=== PATIENT | female | born 1970 | race Caucasian/White ===

== ENCOUNTER 2017-11-28 12:35 | Emergency (ER) | payer BC ==
[~2017-11-28] VITALS: Ht 162.6 cm; Wt 127.0 kg
[~2017-11-28 12:35] MED LIST: PERC5TAB12 PO; PROC1TAB8 PO; ZOFR4TAB3 SL
[2017-11-28 12:42] VITALS: BP 171/92; PULSE 68; RESP 20; TEMP 98.3; O2SAT 97
[2017-11-28] MEDS ORDERED: SODIUM CHLOR 0.9% 1000 ML INJ 1,000 ML IV SCH (12:56)
[2017-11-28 13:00] VITALS: BP 137/80; PULSE 61; RESP 18; O2SAT 95
[2017-11-28] MEDS ORDERED: PANTOPRAZOLE SODIUM 40 MG VIAL IVP ONE (13:00)
[2017-11-28] MEDS ORDERED: MORPHINE SULFATE 4 MG/ML INJ IV PUSH ONE (13:00)
[2017-11-28] MEDS ORDERED: METOCLOPRAMIDE HCL 10 MG/2 ML VIAL IV PUSH ONE (13:00)
--- NOTE | 2017-11-28 13:26 | PD ---
HPI Chief Complaint: GI Complaint Time Seen by Provider: 12:47 Travel History International Travel<30 days: No Contact w/Intl Traveler<30days: No Traveled to known affect area: No History of Present Illness HPI 47-year-old female that presents to the ED for evaluation lower abdominal pain and bloody stool. Per patient she seems less anxious. The patient is that she has to go but she has not gone a few times. When she actually when she had a hard stool in the second time she had normal stool that she started noticing that she had blood in her stool. No history of this in the past. Was seen in the past and feels similar except she does not feel nauseous and has no diarrhea. No. She does have a history of surgery to her bladder has a history of kidney stones and states that similar but she is never had the diarrhea or blood in stool with it before. Per patient when he comes is 7 out of 10 is more like a cramping. No fevers. Has loss of appetite. PFSH Past Medical History ?: Not : 2 Para: 2 Past Surgical History Section: Yes (X2) Social History Alcohol Use: Yes (SOCIAL) Tobacco Use: No Substance Use: No Allergies-Medications (Allergen,Severity, Reaction): Coded Allergies: No Known Allergies (Verified Adverse Reaction, Unknown, 11/28/17) Reported Meds & Prescriptions Reported Meds & Active Scripts Active Review of Systems Except as stated in HPI: all other systems reviewed are Neg Physical Exam Narrative GENERAL: SKIN: Warm and dry. HEAD: Atraumatic. Normocephalic. EYES: Pupils equal and round. No scleral icterus. No injection or drainage. ENT: No nasal bleeding or discharge. Mucous membranes pink and moist. NECK: Trachea midline. No JVD. CARDIOVASCULAR: Regular rate and rhythm. RESPIRATORY: No accessory muscle use. Clear to auscultation. Breath sounds equal bilaterally. GASTROINTESTINAL: Abdomen soft, non-tender, nondistended. Hepatic and splenic margins not palpable. Rectal exam: done with female nurse present and female Medical student. No hemorrhoid, hemocult positive. MUSCULOSKELETAL: Extremities without clubbing, cyanosis, or edema. No obvious deformities. Full ROM of the upper and lower extremities bilaterally. 2+ pulses. NEUROLOGICAL: Awake and alert. No obvious cranial nerve deficits. Motor grossly within normal limits. Five out of 5 muscle strength in the arms and legs. Normal speech. PSYCHIATRIC: Appropriate mood and affect; insight and judgment normal. Data Data Last Documented VS Vital Signs Date Time Temp Pulse Resp B/P (MAP) Pulse Ox O2 Delivery O2 Flow Rate FiO2 11/28/17 14:20 18 11/28/17 13:00 61 137/80 (99) 95 Room Air 11/28/17 12:42 98.3 Orders Orders Complete Blood Count With Diff (11/28/17 12:56) Comprehensive Metabolic Panel (11/28/17 12:56) Lipase (11/28/17 12:56) Lactic Acid (11/28/17 12:56) Prothrombin Time / Inr (Pt) (11/28/17 12:56) Act Partial Throm Time (Ptt) (11/28/17 12:56) Urinalysis - C+S If Indicated (11/28/17 12:56) Ct Abd/Pel W Iv Contrast(Rout) (11/28/17 12:56) Iv Access Insert/Monitor (11/28/17 12:56) Ecg Monitoring (11/28/17 12:56) Morphine Inj (Morphine Inj) (11/28/17 13:00) Pantoprazole Inj (Protonix Inj) (11/28/17 13:00) Sodium Chlor 0.9% 1000 Ml Inj (Ns 1000 M (11/28/17 12:56) Type And Screen (11/28/17 12:56) Metoclopramide Inj (Reglan Inj) (11/28/17 13:00) Iohexol 350 Inj (Omnipaque 350 Inj) (11/28/17 15:16) Ed Discharge Order (11/28/17 16:07) Labs Laboratory Tests Test 11/28/17 13:20 11/28/17 13:35 Urine Color YELLOW Urine Turbidity HAZY Urine pH 8.0 Urine Specific [place] 1.019 Urine Protein NEG mg/dL Urine Glucose (UA) NEG mg/dL Urine Ketones NEG mg/dL Urine Occult Blood TRACE Urine Nitrite NEG Urine Bilirubin NEG Urine Urobilinogen LESS THAN 2.0 MG/DL Urine Leukocyte Esterase NEG Urine RBC LESS THAN 1 /hpf Urine WBC LESS THAN 1 /hpf Urine Squamous Epithelial Cells 6 /hpf Urine Bacteria FEW /hpf Urine Mucus FEW /lpf Microscopic Urinalysis Comment CULT NOT INDICATED White Blood Count 5.7 TH/MM3 Red Blood Count 4.30 MIL/MM3 Hemoglobin 13.7 GM/DL Hematocrit 38.5 % Mean Corpuscular Volume 89.6 FL Mean Corpuscular Hemoglobin 31.8 PG Mean Corpuscular Hemoglobin Concent 35.5 % Red Cell Distribution Width 13.2 % Platelet Count 192 TH/MM3 Mean Platelet Volume 9.1 FL Neutrophils (%) (Auto) 77.5 % Lymphocytes (%) (Auto) 14.2 % Monocytes (%) (Auto) 6.8 % Eosinophils (%) (Auto) 1.2 % Basophils (%) (Auto) 0.3 % Neutrophils # (Auto) 4.4 TH/MM3 Lymphocytes # (Auto) 0.8 TH/MM3 Monocytes # (Auto) 0.4 TH/MM3 Eosinophils # (Auto) 0.1 TH/MM3 Basophils # (Auto) 0.0 TH/MM3 CBC Comment AUTO DIFF Differential Comment AUTO DIFF CONFIRMED Prothrombin Time 9.9 SEC Prothromb Time International Ratio 1.0 RATIO Activated Partial Thromboplast Time 19.6 SEC Blood Urea Nitrogen 8 MG/DL Creatinine 0.83 MG/DL Random Glucose 107 MG/DL Total Protein 7.4 GM/DL Albumin 3.8 GM/DL Calcium Level 8.8 MG/DL Alkaline Phosphatase 76 U/L Aspartate Amino Transf (AST/SGOT) 54 U/L Alanine Aminotransferase (ALT/SGPT) 52 U/L Total Bilirubin 1.5 MG/DL Sodium Level 139 MEQ/L Potassium Level 4.6 MEQ/L Chloride Level 106 MEQ/L Carbon Dioxide Level 23.0 MEQ/L Anion Gap 10 MEQ/L Estimat Glomerular Filtration Rate 74 ML/MIN Lactic Acid Level 1.0 mmol/L Lipase 66 U/L [facility] Medical Decision Making Medical Screen Exam Complete: Yes Emergency Medical Condition: Yes Medical Record Reviewed: Yes Interpretation(s) CBC & BMP Diagram 11/28/17 13:35 Total Protein 7.4, Albumin 3.8, Calcium Level 8.8, Alkaline Phosphatase 76, Aspartate Amino Transf (AST/SGOT) 54 H, Alanine Aminotransferase (ALT/SGPT) 52, Total Bilirubin 1.5 H UA shows some blood Lipase WNL Last Impressions Abdomen/Pelvis CT 11/28/17 1256 Signed Impressions: CONCLUSION: 1. 2 nonspecific low-attenuation hepatic masses. These could be further evalua davion with outpatient CT and/or MRI. 2. Cholelithiasis 2 cm calcified gallstone and no wall thickening or inflammat ory change. 3. 1 mm nonobstructing right renal calculus. 4. Unremarkable bowel gas pattern. There is a normal appendix. Differential Diagnosis Diverticulitis versus bleeding versus colitis versus acute abdomen versus appendicitis Narrative Course 47-year-old female that presents to the ED for evaluation of lower abdominal pain. Patient was properly examined and was signs and symptoms of GI bleed and possible diverticulitis. Labs and imaging ordered. This showed no sign of acute disease. Case discussed with my attending Dr Moura who agrees with discharge. Patient given prescription for tramadol, zofran, flagyl. Follow up with PCP. See ED if worst. [facility] Point of Care Internal Pos. & Neg. Controls: Passed Fecal Specimen Occult Blood: Positive Diagnosis Primary Impression: Rectal bleed Additional Impression: Colitis Patient Instructions: General Instructions, Narcotic given in the ED Departure Forms: Tests/Procedures, Work Release Enter return to work date: Dec 01, 2017 Additional Instructions: Take medications as prescribed. Follow-up with PCP. See ED for any worsening symptoms. Do not drink or drive while taking pain medication. Apply ice or heat as needed for pain Med/Other Pt SpecificInfo: Prescription(s) given Scripts Metronidazole (Flagyl) 500 Mg Tab 500 MG PO BID for Infection for 10 Days, #20 TAB 0 Refills Prov: Isma Moura MD 11/28/17 Ondansetron Odt (Zofran Odt) 4 Mg Tab 4 MG SL Q6HR Y for Nausea/Vomiting, #20 TAB 0 Refills Prov: Isma Moura MD 11/28/17 Tramadol (Tramadol) 50 Mg Tab 50 MG PO Q6H Y for PAIN, #10 TAB 0 Refills Prov: Isma Moura MD 11/28/17 Disposition: 01 DISCHARGE HOME Condition: Stable Baldemar Garcia Nov 28, 2017 13:25
[2017-11-28 14:08] LABS: AUTOMATED NEUTROPHIL # 4.4 TH/MM3 (1.8-7.7); BASOPHIL % 0.3 % (0.0-2.0); EOSINOPHIL # 0.1 TH/MM3 (0-0.4); EOSINOPHIL % 1.2 % (0.0-4.0); HEMATOCRIT 38.5 % (35.0-46.0); HEMOGLOBIN 13.7 GM/DL (11.6-15.3); LYMPH % 14.2 % (9.0-44.0); LYMPHOCYTE # 0.8 TH/MM3 (1.0-4.8); MEAN CELL VOLUME 89.6 FL (80.0-100.0); MEAN CORPUSCULAR HEMOGLOBIN 31.8 PG (27.0-34.0); MEAN CORPUSCULAR HGB CONC 35.5 % (32.0-36.0); MEAN PLATELET VOLUME 9.1 FL (7.0-11.0); MONO % 6.8 % (0.0-8.0); MONOCYTE # 0.4 TH/MM3 (0-0.9); NEUT % 77.5 % (16.0-70.0); PLATELET COUNT 192 TH/MM3 (150-450); RED CELL DISTRIBUTION WIDTH 13.2 % (11.6-17.2); WHITE BLOOD COUNT 5.7 TH/MM3 (4.0-11.0)
[2017-11-28 14:08] LABS: BILIRUBIN, URINE NEG (NEG); BLOOD, URINE TRACE (NEG); GLUCOSE,URINE NEG (NEG); KETONE, URINE NEG (NEG); MUCUS URINE FEW /lpf (OCC); NITRITE,URINE NEG (NEG); SQUAMOUS EPITHELIAL CELL URINE 6 /hpf (0-5); URINE COLOR YELLOW (YELLW/STRAW); URINE LEUKOCYTE ESTERASE NEG (NEG)
[2017-11-28 14:16] LABS: BACTERIA, URINE FEW /hpf
[2017-11-28 14:16] LABS: PROTHROMBIN TIME - PATIENT 9.9 SEC (9.8-11.6)
[2017-11-28 14:20] VITALS: RESP 18
[2017-11-28 14:28] LABS: ALKALINE PHOSPHATASE 76 U/L (45-117); TOTAL BILIRUBIN ADULT 1.5 MG/DL (0.2-1.0); TOTAL PROTEIN 7.4 GM/DL (6.4-8.2)
[2017-11-28 14:30] LABS: ALBUMIN 3.8 GM/DL (3.4-5.0); ALT (GPT) 52 U/L (10-53); AST (GOT) 54 U/L (15-37); BLOOD UREA NITROGEN 8 MG/DL (7-18); CALCIUM 8.8 MG/DL (8.5-10.1); CHLORIDE 106 MEQ/L (98-107); CREATININE 0.83 MG/DL (0.50-1.00); GLOMERULAR FILTRATION RATE 74 ML/MIN (>89); GLUCOSE,RANDOM 107 MG/DL (74-106); SODIUM (NA) 139 MEQ/L (136-145)
[2017-11-28] MEDS ORDERED: IOHEXOL 350 MG/ML 10 ML VIAL (for RAD DIAG) IVCONTRAST ONE (15:16)
--- NOTE | 2017-11-28 15:42 | RADRPT ---
EXAM DATE: 11/28/2017 3:22 PM EDT AGE/SEX: 47 years / Female INDICATIONS: Lower abdominal pain. CLINICAL DATA: This is the patient's initial encounter. Patient reports that signs and symptoms have been present for 1 day and indicates a pain score of 4/10. MEDICAL/SURGICAL HISTORY: None. section. Tubal ligation. Hernia repair, bladder sling ORAL CONTRAST: No oral contrast ingested. RADIATION DOSE: 16.94 CTDI (mGy) COMPARISON: No prior [place] exams available for comparison. TECHNIQUE: Multiple contiguous axial images were obtained through the abdomen and pelvis following b olus infusion of 85 ml Omnipaque 350 (iohexol) nonionic water-soluble contrast as a single exam dos e. No oral contrast ingested. Using automated exposure control and adjustment of the mA and/or kV ac cording to patient size, the radiation dose was kept as low as reasonably achievable to obtain optima l diagnostic quality images. FINDINGS: Lower Lungs: The visualized lower lungs are clear. Liver: The liver has a homogeneous density with 2 low attenuation masses. The largest is right lobe a nd measures approximately 4.1 x 3.9 cm. The second is located more inferior right lobe adjacent to th e gallbladder fossa measures 2.5 x 2.3 cm. There is no dilation of the biliary tree. There is a 2 cm partially calcified gallstone. There is no wall thickening or inflammatory change. Spleen: Homogeneous density without enlargement. Pancreas: Unremarkable without mass or calcification. Kidneys: Normal in size and shape. No evidence of mass or hydronephrosis. There is a single 1 mm non obstructing right renal calculus. Adrenal Glands: Unremarkable. Aorta: The aorta and proximal iliac vessels are grossly unremarkable without aneurysmal dilation. Bowel/Mesentery: No oral contrast was given limiting the sensitivity of the exam. The bowel loops are grossly unremarkable. The cecum and sigmoid colon have a normal configuration. There is a normal blas endix. Abdominal Wall: Intact. Retroperitoneum: No evidence of adenopathy in the retrocrural, para-aortic, or deep pelvic regions. Bladder: Contours are smooth. Reproductive Organs: No abnormal masses or calcifications seen. Inguinal: The inguinal region is unremarkable without evidence of adenopathy. Bony Structures: Unremarkable. CONCLUSION: 1. 2 nonspecific low-attenuation hepatic masses. These could be further evaluated with outpatient CT and/or MRI. 2. Cholelithiasis 2 cm calcified gallstone and no wall thickening or inflammatory change. 3. 1 mm nonobstructing right renal calculus. 4. Unremarkable bowel gas pattern. There is a normal appendix. Electronically signed by: Tiago Gomez MD 11/28/2017 3:41 PM EDT
[2017-11-28] MEDS ORDERED: ZOFR4TAB3 SL (16:09)
[2017-11-28] MEDS ORDERED: METR-1 PO (16:09)
[2017-11-28] MEDS ORDERED: TRAM50TA PO (16:09)
[2017-11-28 16:43] VITALS: BP 124/71
== END 2017-11-28 16:44 | disposition home or self-care (01) ==
LOC: NEPE 12:35
DX: K62.5 Hemorrhage of anus and rectum (principal); K52.9 Noninfective gastroenteritis and colitis, unspecified; R16.0 Hepatomegaly, not elsewhere classified; N20.0 Calculus of kidney; K80.20 Calculus of gallbladder without cholecystitis without obstruction; Z87.442 Personal history of urinary calculi
CPT/HCPCS: 74177; 80053; 81001; 83605; 83690; 85025; 85610; 85730; 86850; 86900; 86901; 96361; 96374; 96375; 99284; C9113; J2270; J2765; J7030; Q9967